=== PATIENT | female | born 2000 | race Caucasian/White ===

== ENCOUNTER 2021-03-08 22:48 | Outpatient (CLI) | payer OTHER ==
[~2021-03-08 22:48] MED LIST: COL-RITE250 MG PO; COLACE 100MG C100 MG PO; FLONASE 0.05% N16 GM; IBUPROFEN600 MG PO; LORTAB 5-325 M1 EACH PO; PERCOCET 7.5-31 EACH PO; PRENATAL TABLE1 EAC1 PO; TOPAMAX100 MG PO; ZOFRAN4 MG PO
== END 2021-03-09 02:43 | disposition home or self-care (01) ==
LOC: GENOP 22:48
DX: O99.891 Other specified diseases and conditions complicating pregnancy (principal); M54.5 Low back pain; R10.2 Pelvic and perineal pain; Z3A.37 37 weeks gestation of pregnancy
CPT/HCPCS: 59025; 81001; 83518; 96360; 96361; 96367; J0696

== ENCOUNTER 2021-03-13 06:04 | Inpatient (IN) | payer OTHER ==
[~2021-03-13] VITALS: Ht 172.7 cm; Wt 117.9 kg
[2021-03-13 07:02] LABS: HEMOGLOBIN 9.7 gm/dl (12.3-15.3); RED BLOOD COUNT 3.99 M/UL (4.00-5.10); WHITE BLOOD COUNT 9.1 K/UL (4.5-11.0)
[2021-03-13] MEDS ORDERED: PRENATAL VITAM1 EAC3 PO (07:07)
[2021-03-13] MEDS ORDERED: FERROUS SULFAT325 M2 PO (07:08)
[2021-03-14] MEDS ORDERED: DOCUSATE SODIU100 MG PO (15:15)
[2021-03-14] MEDS ORDERED: FERROUS SULFAT325 M2 PO (15:15)
[2021-03-14] MEDS ORDERED: IBUPROFEN800 MG PO (15:15)
[2021-03-14] MEDS ORDERED: TYLENOL EXTRA500 MG PO (15:15)
== END 2021-03-14 18:15 | disposition home or self-care (01) | DRG 807 ==
LOC: GENOP 06:04 → OB 06:43
PROVIDERS: Obstetrics & Gynecology; ADMIT Obstetrics & Gynecology
PROC: 10E0XZZ Delivery of Products of Conception, External Approach (ICD-10-PCS; principal; 2021-03-13)
PROC: 10907ZC Drainage of Amniotic Fluid, Therapeutic from Products of Conception, Via Natural or Artificial Opening (ICD-10-PCS; 2021-03-13)
PROC: 4A1HX4Z Monitoring of Products of Conception, Cardiac Electrical Activity, External Approach (ICD-10-PCS; 2021-03-13)
DX: O99.214 Obesity complicating childbirth (principal); Z37.0 Single live birth; Z3A.37 37 weeks gestation of pregnancy; E66.9 Obesity, unspecified; Z20.822 Contact with and (suspected) exposure to COVID-19; O62.2 Other uterine inertia; O99.02 Anemia complicating childbirth; D64.9 Anemia, unspecified; N89.8 Other specified noninflammatory disorders of vagina; O34.63 Maternal care for abnormality of vagina, third trimester
CPT/HCPCS: 36415; 51702; 82800; 85014; 85018; 85025; 90471; 90715; J2001; J2210; J2590; J2795; J7120; U0002

== ENCOUNTER 2022-05-19 05:36 | Inpatient (IN) | payer OTHER ==
[~2022-05-19] VITALS: Ht 172.7 cm; Wt 113.4 kg
[~2022-05-19 05:36] MED LIST changes: +DOCUSATE SODIU100 MG PO; +FERROUS SULFAT325 M2 PO; +IBUPROFEN800 MG PO; +PRENATAL VITAM1 EAC3 PO; +TYLENOL EXTRA500 MG PO
[2022-05-19 06:36] LABS: HEMOGLOBIN 9.7 gm/dl (12.3-15.3); RED BLOOD COUNT 3.88 M/UL (4.00-5.10); WHITE BLOOD COUNT 8.6 K/UL (4.5-11.0)
[2022-05-19] MEDS ORDERED: FERROUS SULFAT325 MG PO (19:24)
[2022-05-19] MEDS ORDERED: COLACE100 MG PO (19:24)
[2022-05-19] MEDS ORDERED: IBUPROFEN600 MG PO (19:24)
[2022-05-20 03:45] LABS: HEMOGLOBIN 9.9 gm/dl (12.3-15.3)
== END 2022-05-21 15:33 | disposition home or self-care (01) | DRG 807 ==
LOC: OB 05:36
PROVIDERS: Obstetrics & Gynecology; ADMIT Obstetrics & Gynecology
PROC: 10E0XZZ Delivery of Products of Conception, External Approach (ICD-10-PCS; principal; 2022-05-19)
PROC: 10907ZC Drainage of Amniotic Fluid, Therapeutic from Products of Conception, Via Natural or Artificial Opening (ICD-10-PCS; 2022-05-19)
PROC: 3E033VJ Introduction of Other Hormone into Peripheral Vein, Percutaneous Approach (ICD-10-PCS; 2022-05-19)
PROC: 3E0DXGC Introduction of Other Therapeutic Substance into Mouth and Pharynx, External Approach (ICD-10-PCS; 2022-05-19)
PROC: 4A1H7CZ Monitoring of Products of Conception, Cardiac Rate, Via Natural or Artificial Opening (ICD-10-PCS; 2022-05-19)
PROC: 10H073Z Insertion of Monitoring Electrode into Products of Conception, Via Natural or Artificial Opening (ICD-10-PCS; 2022-05-19)
PROC: 0UH97HZ Insertion of Contraceptive Device into Uterus, Via Natural or Artificial Opening (ICD-10-PCS; 2022-05-19)
PROC: 3E0234Z Introduction of Serum, Toxoid and Vaccine into Muscle, Percutaneous Approach (ICD-10-PCS; 2022-05-19)
DX: O13.4 Gestational [pregnancy-induced] hypertension without significant proteinuria, complicating childbirth (principal); Z37.0 Single live birth; O99.52 Diseases of the respiratory system complicating childbirth; J45.909 Unspecified asthma, uncomplicated; O62.2 Other uterine inertia; O99.02 Anemia complicating childbirth; D64.9 Anemia, unspecified; O69.81X0 Labor and delivery complicated by cord around neck, without compression, not applicable or unspecified; G40.909 Epilepsy, unspecified, not intractable, without status epilepticus; O99.892 Other specified diseases and conditions complicating childbirth; Z3A.37 37 weeks gestation of pregnancy; Z90.89 Acquired absence of other organs; Z28.310 Unvaccinated for COVID-19; Z23 Encounter for immunization; Z88.0 Allergy status to penicillin
CPT/HCPCS: 36415; 81001; 85014; 85018; 85025; 90715; J2590